=== PATIENT | female | born 2005 | race Caucasian/White ===

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

== ENCOUNTER 2024-02-11 11:27 | Emergency (ER) | payer OTHER ==
[2024-02-11 11:31] VITALS: BP 116/77; PULSE 76; RESP 20; TEMP 97.7; BMI 20.3
[2024-02-11] MEDS ORDERED: ACETAMINOPHEN 325 MG TABLET (FP) ONE (12:39)
[2024-02-11] MEDS: ACETAMINOPHEN 500 MG TABLET (FP) PO ONE (12:46)
== END 2024-02-11 12:45 | disposition home or self-care (01) ==
LOC: JERFT 11:27
DX: S60.442A External constriction of right middle finger, initial encounter (principal); W49.04XA Ring or other jewelry causing external constriction, initial encounter
CPT/HCPCS: 99283-25

== ENCOUNTER 2024-03-17 21:13 | Emergency (ER) | payer OTHER ==
[2024-03-17 21:36] VITALS: BP 110/70; PULSE 88; RESP 18; TEMP 97.8; BMI 20.3
[2024-03-17 22:07] LABS: EPI CELLS 36 /uL (0-25.1); HYALINE CASTS 1 /uL (0-3.1); URINE APPEARANCE CLOUDY; URINE BACTERIA 286 /uL (0-1359); URINE BILIRUBIN NEGATIVE (NEGATIVE); URINE COLOR RED; URINE GLUCOSE (UA) NEGATIVE (NEGATIVE); URINE KETONE NEGATIVE (NEGATIVE); URINE LEUK ESTERASE 1+ (NEGATIVE); URINE NITRITE NEGATIVE (NEGATIVE); URINE PROTEIN 2+ (NEGATIVE); URINE RBC 4551 /uL (0-23.9); URINE UROBILINOGEN 0.2 mg/dL (0.2-1.0); URINE WBC 88 /uL (0-25.8)
[2024-03-17 22:08] LABS: HCG,QUALITATIVE URINE Negative
[2024-03-17] MEDS ORDERED: IBUPROFEN 400 MG TABLET (FP) PO ONE (22:49)
[2024-03-17] MEDS: IBUPROFEN 400 MG TABLET (FP) PO ONE (23:03)
[2024-03-17 23:39] LABS: BASO % 0.6 % (0-2.0); EOS % 1.3 % (0-4.5); HEMATOCRIT 40.6 % (32.4-45.2); HEMOGLOBIN 13.4 GM/dL (10.7-15.3); LYMPH % 47.2 % (8-40); MCH 28.3 pg (25.7-33.7); MCHC 32.9 g/dl (32.0-36.0); MEAN CELL VOLUME 86.2 fl (80-96); MEAN PLT VOLUME 8.8 fl (7.5-11.1); MONO % 8.4 % (3.8-10.2); NEUT % 42.5 % (42.8-82.8); PLATELET COUNT 223 10^3/uL (134-434); RBC 4.71 M/mm3 (3.60-5.2); RDW 15.1 % (11.6-15.6); WHITE BLOOD COUNT 8.4 K/mm3 (4.0-10.0)
[2024-03-18 00:41] LABS: HIV INTERPRETATION NEGATIVE (NEGATIVE)
== END 2024-03-18 00:32 | disposition home or self-care (01) ==
LOC: JER 21:13
DX: N93.9 Abnormal uterine and vaginal bleeding, unspecified (principal); R10.30 Lower abdominal pain, unspecified
CPT/HCPCS: 36415; 76830-TC; 81003; 84703; 85025; 86803; 87086; 87186; 87389; 87491; 87591; 99284-25